=== PATIENT | female | born 1970 | race Caucasian/White ===

== ENCOUNTER 2016-07-12 09:58 | Emergency (ER) | payer MEDICAID ==
[~2016-07-12] VITALS: Ht 157.5 cm; Wt 75.7 kg
[~2016-07-12 09:58] MED LIST: ATEN50TA PO
[2016-07-12 10:07] VITALS: BP 156/95; PULSE 100; RESP 20; TEMP 97.7; O2SAT 100
--- NOTE | 2016-07-12 10:13 | NUR ---
Pt placed to ER bed 03 and to gown. Report given to LEONARD Cervantes.
--- NOTE | 2016-07-12 10:20 | NUR ---
C/O LLQ, suprapubic pain. Reports that she had diarrhea all night, denies vomiting, denies fever. States that she has had diarrhea for a few months and is being worked up by her PCP for the diarrhea. Abd is tender to LLQ and suprapubis.
--- NOTE | 2016-07-12 10:23 | NUR ---
ER Dr. Quiñonez at bedside examining patient.
[2016-07-12] MEDS ORDERED: KETOROLAC TROMETHAMINE 60 MG/2 ML VIAL IM ONE (10:30)
[2016-07-12 10:37] LABS: BILIRUBIN,URINE NEGATIVE (NEGATIVE); BLOOD, URINE NEGATIVE (NEGATIVE); CLARITY/URINE CLEAR (CLEAR); COLOR,URINE YELLOW (YELLOW); GLUCOSE,URINE NEGATIVE (NEGATIVE); KETONES,URINE NEGATIVE (NEGATIVE); LEUKOCYTE ESTERASE ,URINE NEGATIVE (NEGATIVE); NITRITE, URINE NEGATIVE (NEGATIVE); PH,URINE 6.5 (5.0-8.0); PROTEIN URINE NEGATIVE (NEGATIVE); UROBILINOGEN,URINE 0.2 (0.2-1.0)
[2016-07-12 10:48] LABS: BASOPHILS # (AUTO) 0.1 K/uL (0.0-0.2); EOSINOPHILS % (AUTO) 0.4 % (0.0-4.0); HEMATOCRIT 43.2 % (36-48); HEMOGLOBIN 14.3 g/dL (12.0-16.0); LYMPHOCYTES # (AUTO) 2.3 K/uL (1.0-5.5); MEAN CORPUSCULAR HEMOGLOBIN 29 pg (27-31); MEAN CORPUSCULAR HGB CONC 33 % (32-36); MEAN CORPUSCULAR VOLUME 87 fL (79.0-98.0); MONOCYTES # (AUTO) 0.4 K/uL (0.0-1.0); MONOCYTES % (AUTO) 3.7 % (1.7-9.3); NEUTROPHILS # (AUTO) 9.3 K/uL (1.8-7.7); NEUTROPHILS % (AUTO) 75.9 % (40.0-70.0); PLATELET COUNT (AUTO) 263 K/uL (130-430); RED BLOOD CELL COUNT(AUTO) 4.97 MIL/uL (4.2-6.2); RED CELL DISTRIBUTION WIDTH 12.3 % (9.0-15.0); WHITE BLOOD COUNT (AUTO) 12.1 K/uL (4.8-10.8)
[2016-07-12 10:54] LABS: CREATININE 0.66 mg/dL (0.55-1.30); POTASSIUM 3.8 mmol/L (3.5-5.1)
[2016-07-12 11:00] LABS: TOTAL BILIRUBIN 0.8 mg/dL (0.0-1.0)
[2016-07-12 11:01] LABS: ALBUMIN 3.9 g/dL (3.4-4.8); TOTAL PROTEIN, SERUM 8.4 g/dL (6.4-8.3)
--- NOTE | 2016-07-12 11:08 | NUR ---
States that pain is imporved to 4/10 which is tolerable, still awaiting CT.
[2016-07-12] MEDS ORDERED: FLUT16SP16 NS (11:11)
[2016-07-12] MEDS ORDERED: LISI40TA4 PO (11:11)
[2016-07-12] MEDS ORDERED: OMEP40CA33 PO (11:11)
[2016-07-12] MEDS ORDERED: LORA-258 PO (11:15)
[2016-07-12] MEDS ORDERED: CIPROFLOXACIN HCL 500 MG TABLET PO ONE (12:15)
[2016-07-12] MEDS ORDERED: metroNIDAZOLE 500 MG TABLET PO ONE (12:15)
--- NOTE | 2016-07-12 12:50 | NUR ---
Patient states that she is comfortable. Awaiting US.
--- NOTE | 2016-07-12 13:10 | NUR ---
Off unit for US.
--- NOTE | 2016-07-12 13:47 | NUR ---
Returned from US.
--- NOTE | 2016-07-12 14:05 | NUR ---
Patient does not wish to proceed with medical care recommended by Dr. Quiñonez. Patient given information related to possible complications, up to and including , which could occur as a result of leaving hospital at this time. Patient states that she is traumatized from past hospitalizations and is feeling anxiety related to admission. Patient verbalizes understanding of risks involved leaving against medical advice. Patient advised to return if she has worsening pain, vomiting, or develops fever. Patient advised to follow closely with PCP regardless of how she feels. Patient has signed AMA form.
[2016-07-12 14:08] VITALS: BP 155/92; PULSE 101; RESP 16; TEMP 97.9; O2SAT 99
== END 2016-07-12 14:08 | disposition left against medical advice (07) ==
LOC: SED 09:58
DX: K57.32 Diverticulitis of large intestine without perforation or abscess without bleeding (principal); I10 Essential (primary) hypertension; Z88.6 Allergy status to analgesic agent; Z88.5 Allergy status to narcotic agent
CPT/HCPCS: 36415; 74176; 76830; 76857; 80053; 81003; 81025; 82150; 83605; 83690; 85025; 87040; 96372; 99285; J1885

== ENCOUNTER 2017-07-17 12:02 | Emergency (ER) | payer MEDICAID ==
[~2017-07-17] VITALS: Ht 157.5 cm; Wt 83.9 kg
[~2017-07-17 12:02] MED LIST changes: +FLUT16SP16 NS; +LISI40TA4 PO; +LORA-258 PO; +OMEP40CA33 PO
[2017-07-17 12:38] VITALS: BP_SYST 159
--- NOTE | 2017-07-17 13:06 | NUR ---
Patient to ER bed 1 to gown for evaluation. Side rails up. Report given to Rosemary VALLE.
--- NOTE | 2017-07-17 13:12 | NUR ---
SYLVAIN SUTHERLAND AT BEDSIDE FOR EVALUATION
--- NOTE | 2017-07-17 13:20 | NUR ---
Patient given written and verbal discharge instructions and verbalizes understanding. ER MD discussed with patient the results and treatment provided. Patient in stable condition. ID arm band removed. Rx of MOTRIN,AUGMENTIN given. Patient educated on pain management and to follow up with PMD. Pain Scale 0/10. Opportunity for questions provided and answered. Medication side effect fact sheet provided.
== END 2017-07-17 13:20 | disposition home or self-care (01) ==
LOC: SED 12:02
DX: J01.00 Acute maxillary sinusitis, unspecified (principal); I10 Essential (primary) hypertension; M19.90 Unspecified osteoarthritis, unspecified site; E66.9 Obesity, unspecified; Z68.33 Body mass index [BMI] 33.0-33.9, adult; Z90.89 Acquired absence of other organs; Z90.49 Acquired absence of other specified parts of digestive tract; Z90.710 Acquired absence of both cervix and uterus; Z86.79 Personal history of other diseases of the circulatory system; Z88.5 Allergy status to narcotic agent; Z88.6 Allergy status to analgesic agent; Z79.899 Other long term (current) drug therapy
CPT/HCPCS: 99283

== ENCOUNTER 2017-08-24 14:31 | Emergency (ER) | payer MEDICAID ==
[~2017-08-24] VITALS: Ht 157.5 cm; Wt 83.9 kg
[2017-08-24 14:40] VITALS: BP_SYST 142
[2017-08-24 15:23] VITALS: BP_SYST 138
== END 2017-08-24 15:23 | disposition home or self-care (01) ==
LOC: SED 14:31
DX: H60.92 Unspecified otitis externa, left ear (principal); H66.92 Otitis media, unspecified, left ear; I10 Essential (primary) hypertension; K21.9 Gastro-esophageal reflux disease without esophagitis; F41.9 Anxiety disorder, unspecified; M19.90 Unspecified osteoarthritis, unspecified site; Z90.49 Acquired absence of other specified parts of digestive tract; Z90.89 Acquired absence of other organs; Z90.710 Acquired absence of both cervix and uterus; Z88.1 Allergy status to other antibiotic agents; Z88.6 Allergy status to analgesic agent; Z88.5 Allergy status to narcotic agent; Z79.899 Other long term (current) drug therapy
CPT/HCPCS: 99283

== ENCOUNTER 2018-04-06 09:35 | Emergency (ER) | payer MEDICAID ==
[~2018-04-06] VITALS: Ht 157.5 cm; Wt 86.2 kg
[2018-04-06 09:49] VITALS: BP_SYST 159
--- NOTE | 2018-04-06 09:49 | NUR ---
Patient to ER bed 7 to gown for evaluation. Side rails up.
--- NOTE | 2018-04-06 10:00 | NUR ---
PT PRESENTS TO ED C/O L GREAT TOE PAIN AND URINARY SYMPTOMS. pT HAS NO ACUTE DISTRESS NOTED.
--- NOTE | 2018-04-06 10:05 | NUR ---
ER at bedside examining patient.
--- NOTE | 2018-04-06 10:30 | NUR ---
Urine specimen collected and analyzed in ER. Results given to ER .
--- NOTE | 2018-04-06 10:40 | NUR ---
AT BEDSIDE FOR I&D OF PT'S TOE. PT TOLERATED WELL. WOUND CARE RECEIVED.
[2018-04-06] MEDS ORDERED: NORFLURANE/HFC 245FA 103.5 ML SPRAY TP ONE (10:45)
[2018-04-06 11:15] VITALS: BP_SYST 159
[2018-04-06] MEDS ORDERED: IBUPROFEN 800 MG TABLET PO ONE (11:15)
--- NOTE | 2018-04-06 11:20 | NUR ---
Patient given written and verbal discharge instructions and verbalizes understanding. ER MD discussed with patient the results and treatment provided. Patient in stable condition. ID arm band removed. Rx of MACROBID,MUPROCIN,CLINDAMYCIN given. Patient educated on pain management and to follow up with PMD. Pain Scale 2. Opportunity for questions provided and answered. Medication side effect fact sheet provided.
== END 2018-04-06 11:20 | disposition home or self-care (01) ==
LOC: SED 09:35
DX: L60.0 Ingrowing nail (principal); N39.0 Urinary tract infection, site not specified; K21.9 Gastro-esophageal reflux disease without esophagitis; F41.9 Anxiety disorder, unspecified; I10 Essential (primary) hypertension; Z86.79 Personal history of other diseases of the circulatory system; Z90.49 Acquired absence of other specified parts of digestive tract; Z90.89 Acquired absence of other organs; Z90.710 Acquired absence of both cervix and uterus; Z88.1 Allergy status to other antibiotic agents; Z88.6 Allergy status to analgesic agent
CPT/HCPCS: 99283

== ENCOUNTER 2018-07-08 09:06 | Emergency (ER) | payer MEDICAID ==
[~2018-07-08] VITALS: Ht 157.5 cm; Wt 87.1 kg
[2018-07-08 09:21] VITALS: BP_SYST 155
[2018-07-08] MEDS ORDERED: guaiFENesin/DEXTROMETHORPHAN 10 ML UDC PO ONE (09:45)
[2018-07-08] MEDS ORDERED: LevALBUTEROL HCL 1.25 MG/0.5 ML *CONC.* VIAL.NEB (XOPENEX CONC.) INH ONE (09:45)
[2018-07-08] MEDS ORDERED: cefTRIAXone 1 GM in LIDOCAINE 1%, 20 ML MDV 2.1 ML IM ONE (09:45)
[2018-07-08 10:35] VITALS: BP_SYST 152
== END 2018-07-08 10:35 | disposition home or self-care (01) ==
LOC: SED 09:06
DX: J02.9 Acute pharyngitis, unspecified (principal); B34.9 Viral infection, unspecified; K21.9 Gastro-esophageal reflux disease without esophagitis; I10 Essential (primary) hypertension; F41.9 Anxiety disorder, unspecified; Z86.79 Personal history of other diseases of the circulatory system; Z88.1 Allergy status to other antibiotic agents; Z88.6 Allergy status to analgesic agent; Z88.4 Allergy status to anesthetic agent
CPT/HCPCS: 94640; 96372; 99283; J0696; J2001; J7612

== ENCOUNTER 2018-07-10 11:17 | Emergency (ER) | payer MEDICAID ==
[~2018-07-10] VITALS: Ht 157.5 cm; Wt 87.1 kg
[2018-07-10] MEDS ORDERED: NACL 0.9% 1,000 ML IV ONE (11:25)
[2018-07-10 12:15] LABS: BASOPHILS % (AUTO) 0.7 % (0.0-2.0); EOSINOPHILS # (AUTO) 0.1 K/uL (0.0-0.4); EOSINOPHILS % (AUTO) 1.2 % (0.0-4.0); HEMOGLOBIN 13.5 g/dL (12.0-16.0); LYMPHOCYTES # (AUTO) 2.1 K/uL (1.0-5.5); LYMPHOCYTES % (AUTO) 40.2 % (20.5-51.5); MEAN CORPUSCULAR HEMOGLOBIN 28 pg (27-31); MEAN CORPUSCULAR HGB CONC 33 % (32-36); MEAN CORPUSCULAR VOLUME 85 fL (79.0-98.0); MONOCYTES # (AUTO) 0.3 K/uL (0.0-1.0); MONOCYTES % (AUTO) 6.6 % (1.7-9.3); NEUTROPHILS # (AUTO) 2.6 K/uL (1.8-7.7); NEUTROPHILS % (AUTO) 51.3 % (40.0-70.0); PLATELET COUNT (AUTO) 288 K/uL (130-430); RED BLOOD CELL COUNT(AUTO) 4.84 MIL/uL (4.2-6.2); RED CELL DISTRIBUTION WIDTH 12.7 % (9.0-15.0); WHITE BLOOD COUNT (AUTO) 5.1 K/uL (4.8-10.8)
[2018-07-10 12:20] LABS: CALCIUM 8.8 mg/dL (8.4-11.0); CREATININE 0.73 mg/dL (0.55-1.30); POTASSIUM 3.7 mmol/L (3.5-5.1)
[2018-07-10 12:25] LABS: ALBUMIN 3.2 g/dL (3.4-4.8); TOTAL BILIRUBIN 0.5 mg/dL (0.0-1.0)
[2018-07-10 12:30] VITALS: BP_SYST 159
[2018-07-10] MEDS ORDERED: KETOROLAC TROMETHAMINE 30 MG VIAL IM ONE (15:00)
[2018-07-10 15:33] VITALS: BP_SYST 159
== END 2018-07-10 14:30 | disposition home or self-care (01) ==
LOC: SED 11:17
DX: R59.0 Localized enlarged lymph nodes (principal); K21.9 Gastro-esophageal reflux disease without esophagitis; F41.9 Anxiety disorder, unspecified; I10 Essential (primary) hypertension; Z86.79 Personal history of other diseases of the circulatory system; Z88.1 Allergy status to other antibiotic agents; Z88.4 Allergy status to anesthetic agent; Z88.6 Allergy status to analgesic agent; Z79.899 Other long term (current) drug therapy
CPT/HCPCS: 36415; 80053; 85025; 96372; 99283; J1885

== ENCOUNTER 2018-10-31 10:03 | Emergency (ER) | payer MEDICAID ==
[~2018-10-31] VITALS: Ht 157.5 cm; Wt 86.2 kg
[2018-10-31 10:10] VITALS: BP_SYST 137
[2018-10-31 12:05] VITALS: BP_SYST 125
== END 2018-10-31 12:05 | disposition home or self-care (01) ==
LOC: SED 10:03
DX: M26.621 Arthralgia of right temporomandibular joint (principal); I10 Essential (primary) hypertension; F41.9 Anxiety disorder, unspecified; Z90.49 Acquired absence of other specified parts of digestive tract; Z90.89 Acquired absence of other organs; Z90.710 Acquired absence of both cervix and uterus; Z79.899 Other long term (current) drug therapy; Z88.1 Allergy status to other antibiotic agents; Z88.4 Allergy status to anesthetic agent; Z88.6 Allergy status to analgesic agent
CPT/HCPCS: 70450-TC; 99284

== ENCOUNTER 2019-03-07 10:38 | Emergency (ER) | payer MEDICAID ==
[~2019-03-07] VITALS: Ht 157.5 cm; Wt 88.5 kg
[2019-03-07 10:52] VITALS: BP_SYST 154
--- NOTE | 2019-03-07 11:00 | NUR ---
Patient to ER bed 7 to gown for evaluation. Side rails up. Report given to Annabel VALLE.
--- NOTE | 2019-03-07 11:02 | NUR ---
pt brought by self , A&Ox4, pt presents to ER with cough and congestion x 5 days, afebrile, skin pink and warm, cap refill <3,VSS.
--- NOTE | 2019-03-07 11:04 | NUR ---
Dr Rubio at bedside examining patient
--- NOTE | 2019-03-07 12:05 | NUR ---
Patient given written and verbal discharge instructions and verbalizes understanding. ER MD discussed with patient the results and treatment provided. Patient in stable condition. ID arm band removed. Rx of Milind Goyal given. Patient educated on pain management and to follow up with PMD. Pain Scale 0/10. Opportunity for questions provided and answered. Medication side effect fact sheet provided.
== END 2019-03-07 12:05 | disposition home or self-care (01) ==
LOC: SED 10:38
DX: J06.9 Acute upper respiratory infection, unspecified (principal); I10 Essential (primary) hypertension; F41.9 Anxiety disorder, unspecified; Z86.79 Personal history of other diseases of the circulatory system; Z88.6 Allergy status to analgesic agent; Z91.041 Radiographic dye allergy status; Z79.899 Other long term (current) drug therapy
CPT/HCPCS: 71045; 99283

== ENCOUNTER 2019-03-11 09:01 | Emergency (ER) | payer MEDICAID ==
[~2019-03-11] VITALS: Ht 157.5 cm; Wt 88.5 kg
[2019-03-11 09:01] VITALS: BP_SYST 149
[2019-03-11] MEDS ORDERED: PREDNISONE 20 MG TABLET PO ONE (09:30)
[2019-03-11 10:00] VITALS: BP_SYST 158
== END 2019-03-11 10:00 | disposition home or self-care (01) ==
LOC: SED 09:01
DX: J40 Bronchitis, not specified as acute or chronic (principal); I10 Essential (primary) hypertension; Z88.5 Allergy status to narcotic agent; Z88.6 Allergy status to analgesic agent; Z88.8 Allergy status to other drugs, medicaments and biological substances
CPT/HCPCS: 71046-TC; 93005; 99283; J7512

== ENCOUNTER 2019-12-27 02:26 | Emergency (ER) | payer MEDICAID ==
[~2019-12-27] VITALS: Ht 157.5 cm; Wt 88.9 kg
[2019-12-27 02:26] VITALS: BP_SYST 141
[2019-12-27] MEDS ORDERED: LORA10TA7 PO (03:25)
[2019-12-27] MEDS ORDERED: NACL 0.9% 1,000 ML IV ONE (03:45)
[2019-12-27] MEDS ORDERED: MECLIZINE HCL 25 MG TABLET (ANITVERT) PO ONE ×2 (03:45→06:45)
[2019-12-27 03:48] LABS: BASOPHILS # (AUTO) 0.1 K/uL (0.0-0.2); BASOPHILS % (AUTO) 1.1 % (0.0-2.0); EOSINOPHILS # (AUTO) 0.1 K/uL (0.0-0.4); EOSINOPHILS % (AUTO) 1.4 % (0.0-4.0); HEMATOCRIT 41.6 % (36-48); HEMOGLOBIN 13.9 g/dL (12.0-16.0); LYMPHOCYTES # (AUTO) 2.5 K/uL (1.0-5.5); LYMPHOCYTES % (AUTO) 33.9 % (20.5-51.5); MEAN CORPUSCULAR HEMOGLOBIN 28 pg (27-31); MEAN CORPUSCULAR HGB CONC 33 % (32-36); MEAN CORPUSCULAR VOLUME 83 fL (79.0-98.0); MONOCYTES # (AUTO) 0.3 K/uL (0.0-1.0); MONOCYTES % (AUTO) 4.7 % (1.7-9.3); NEUTROPHILS # (AUTO) 4.3 K/uL (1.8-7.7); NEUTROPHILS % (AUTO) 58.9 % (40.0-70.0); PLATELET COUNT (AUTO) 250 K/uL (130-430); RED BLOOD CELL COUNT(AUTO) 5.03 MIL/uL (4.2-6.2); RED CELL DISTRIBUTION WIDTH 14.4 % (9.0-15.0); WHITE BLOOD COUNT (AUTO) 7.3 K/uL (4.8-10.8)
[2019-12-27 04:02] LABS: CALCIUM 9.1 mg/dL (8.4-11.0); CREATININE 0.74 mg/dL (0.55-1.30); POTASSIUM 3.4 mmol/L (3.5-5.1)
[2019-12-27 04:09] LABS: ALBUMIN 3.5 g/dL (3.4-4.8); TOTAL BILIRUBIN 0.5 mg/dL (0.0-1.0)
[2019-12-27] MEDS ORDERED: LORazepam 2 MG/ML VIAL IM ONE (04:15)
[2019-12-27] MEDS ORDERED: LORazepam 2 MG/ML VIAL IVP ONE (07:45)
[2019-12-27 08:53] VITALS: BP_SYST 145
== END 2019-12-27 08:54 | disposition home or self-care (01) ==
LOC: SED 02:26
DX: R42 Dizziness and giddiness (principal); I10 Essential (primary) hypertension; F41.9 Anxiety disorder, unspecified; Z86.73 Personal history of transient ischemic attack (TIA), and cerebral infarction without residual deficits; Z79.899 Other long term (current) drug therapy; Z88.6 Allergy status to analgesic agent
CPT/HCPCS: 36415; 70450; 80053; 81002; 85025; 93005; 96361; 96372; 96374; 99285; J2060; J8597

== ENCOUNTER 2020-03-13 09:12 | Emergency (ER) | payer MEDICAID ==
[~2020-03-13] VITALS: Ht 157.5 cm; Wt 87.5 kg
[~2020-03-13 09:12] MED LIST changes: +LORA10TA7 PO; +OMEP40CA13 PO; -OMEP40CA33 PO
[2020-03-13 09:16] VITALS: BP_SYST 156
--- NOTE | 2020-03-13 09:16 | NUR ---
Patient to ER bed 3 to gown for evaluation. Side rails up. Report given to Zaria VALLE.
--- NOTE | 2020-03-13 09:18 | NUR ---
Patient presented to ER C/O Abdominal pain. Patient A&Ox4, ambulatory, afebrile, skin pink & warm, pain /, denies N/V/D. Patient states she has left lower abdominal pain radiating to back. Patients reports hx of diverticulitis.
--- NOTE | 2020-03-13 09:29 | NUR ---
ER at bedside examining patient.
[2020-03-13] MEDS ORDERED: KETOROLAC TROMETHAMINE 60 MG/2 ML VIAL IM ONE (09:30)
[2020-03-13 10:19] LABS: CORRECTED WHITE BLOOD COUNT 9.8 K/uL (4.5-11.0); HEMATOCRIT 38.5 % (36-48); MEAN CORPUSCULAR HEMOGLOBIN 28 pg (27-31); MEAN CORPUSCULAR VOLUME 84 fL (79.0-98.0); WHITE BLOOD COUNT (AUTO) 9.8 K/uL (4.8-10.8)
[2020-03-13 10:20] LABS: EOSINOPHILS % (AUTO) 1.1 % (0.0-4.0); LYMPHOCYTES % (AUTO) 21.5 % (20.5-51.5); MEAN CORPUSCULAR HGB CONC 34 % (32-36); MONOCYTES % (AUTO) 4.4 % (1.7-9.3); NEUTROPHILS % (AUTO) 72.2 % (40.0-70.0); PLATELET COUNT (AUTO) 261 K/uL (130-430); RED CELL DISTRIBUTION WIDTH 14.3 % (9.0-15.0)
--- NOTE | 2020-03-13 10:20 | NUR ---
Patient refused Toradol IM. Patient educated on Medication. Made Dr. Rodrigues aware.
[2020-03-13 10:21] LABS: BASOPHILS # (AUTO) 0.1 K/uL (0.0-0.2); BASOPHILS % (AUTO) 0.8 % (0.0-2.0); EOSINOPHILS # (AUTO) 0.1 K/uL (0.0-0.4); LYMPHOCYTES # (AUTO) 2.1 K/uL (1.0-5.5); MONOCYTES # (AUTO) 0.4 K/uL (0.0-1.0); NEUTROPHILS # (AUTO) 7.1 K/uL (1.8-7.7)
[2020-03-13 10:27] LABS: POTASSIUM 3.5 mmol/L (3.5-5.1)
[2020-03-13 10:28] LABS: CALCIUM 8.6 mg/dL (8.4-11.0); CREATININE 0.61 mg/dL (0.55-1.30); TOTAL BILIRUBIN 0.8 mg/dL (0.0-1.0)
[2020-03-13 10:29] LABS: ALBUMIN 3.5 g/dL (3.4-4.8)
[2020-03-13 12:04] VITALS: BP_SYST 148
--- NOTE | 2020-03-13 12:04 | NUR ---
Patient given written and verbal discharge instructions and verbalizes understanding. ER MD discussed with patient the results and treatment provided. Patient in stable condition. ID arm band removed. Rx of cipro,flagyl,motrin given. Patient educated on pain management and to follow up with PMD. Pain Scale 0/10. Opportunity for questions provided and answered. Medication side effect fact sheet provided.
== END 2020-03-13 12:04 | disposition home or self-care (01) ==
LOC: SED 09:12
DX: K57.92 Diverticulitis of intestine, part unspecified, without perforation or abscess without bleeding (principal); I10 Essential (primary) hypertension; F41.9 Anxiety disorder, unspecified; Z86.73 Personal history of transient ischemic attack (TIA), and cerebral infarction without residual deficits; Z79.899 Other long term (current) drug therapy; Z88.6 Allergy status to analgesic agent; Z88.4 Allergy status to anesthetic agent
CPT/HCPCS: 36415; 74176; 80053; 81002; 85025; 99284; J1885

== ENCOUNTER 2020-12-28 11:19 | Emergency (ER) | payer MEDICAID ==
[~2020-12-28] VITALS: Ht 157.5 cm; Wt 86.2 kg
[~2020-12-28 11:19] MED LIST changes: +LISI40TA13 PO; -LISI40TA4 PO
--- NOTE | 2020-12-28 11:20 | NUR ---
Pt triaged and placed in waiting room. V/S stable, no acute distress noted.
--- NOTE | 2020-12-28 11:25 | NUR ---
Pt walked in to ER with c/o right knee pain, s/p mechanical fall. Denies any LOC or other trauma a this time. Pain 6/10, v/s stable, no acute distress noted.
--- NOTE | 2020-12-28 11:30 | NUR ---
ER Dr. Griffin at bedside examining patient.
--- NOTE | 2020-12-28 11:40 | NUR ---
Patient transported to radiology via wheelchair, accompanied by staff.
[2020-12-28 11:54] VITALS: BP_SYST 156
[2020-12-28 14:10] VITALS: BP_SYST 148
--- NOTE | 2020-12-28 14:11 | NUR ---
Patient given written and verbal discharge instructions and verbalizes understanding. ER MD discussed with patient the results and treatment provided. Patient in stable condition. ID arm band removed. No prescriptions given. Patient educated on pain management and to follow up with PMD. Pain Scale 0. Opportunity for questions provided and answered. Medication side effect fact sheet provided.
== END 2020-12-28 14:11 | disposition home or self-care (01) ==
LOC: SED 11:19
DX: S83.91XA Sprain of unspecified site of right knee, initial encounter (principal); I10 Essential (primary) hypertension; Z88.5 Allergy status to narcotic agent; Z88.8 Allergy status to other drugs, medicaments and biological substances; Z79.899 Other long term (current) drug therapy; W01.0XXA Fall on same level from slipping, tripping and stumbling without subsequent striking against object, initial encounter; Y93.89 Activity, other specified; Y92.89 Other specified places as the place of occurrence of the external cause; Y99.8 Other external cause status
CPT/HCPCS: 73564; 99283

== ENCOUNTER 2021-03-27 10:43 | Emergency (ER) | payer MEDICAID ==
[~2021-03-27] VITALS: Ht 157.5 cm; Wt 88.0 kg
[~2021-03-27 10:43] MED LIST changes: -OMEP40CA13 PO; +OMEP40CA20 PO
[2021-03-27 10:45] VITALS: BP_SYST 150
--- NOTE | 2021-03-27 10:50 | NUR ---
Patient triaged and placed in waiting room. VSS and patient appears in no acute distress at this time. Accompanied by SELF, awaiting available bed, and MD notified of need for MSE.
--- NOTE | 2021-03-27 11:00 | NUR ---
Pt walked in to ER with left ankle pain 6/10 s/p mechanical slip and fall down one of her stairs today. Denies any other trauma at this time, no deformity noted. V/S stable, no acute distress noted.
--- NOTE | 2021-03-27 11:25 | NUR ---
ER Dr. Cox at bedside examining patient.
--- NOTE | 2021-03-27 11:40 | NUR ---
Patient transported to radiology via wheelchair, accompanied by staff.
[2021-03-27] MEDS ORDERED: IBUP-1969 PO ×2 (12:14→13:03)
[2021-03-27] MEDS ORDERED: HYDR-3917 PO (12:14)
--- NOTE | 2021-03-27 12:55 | NUR ---
Patient given written and verbal discharge instructions and verbalizes understanding. ER MD discussed with patient the results and treatment provided. Patient in stable condition. ID arm band removed. Rx of Motrin given. Patient educated on pain management and to follow up with PMD. Pain Scale 0. Opportunity for questions provided and answered. Medication side effect fact sheet provided.
[2021-03-27 13:06] VITALS: BP_SYST 150
== END 2021-03-27 12:55 | disposition home or self-care (01) ==
LOC: SED 10:43
DX: S93.402A Sprain of unspecified ligament of left ankle, initial encounter (principal); S93.602A Unspecified sprain of left foot, initial encounter; I10 Essential (primary) hypertension; Z88.5 Allergy status to narcotic agent; Z88.8 Allergy status to other drugs, medicaments and biological substances; Z79.899 Other long term (current) drug therapy; X50.1XXA Overexertion from prolonged static or awkward postures, initial encounter; Y93.89 Activity, other specified; Y92.89 Other specified places as the place of occurrence of the external cause; Y99.8 Other external cause status
CPT/HCPCS: 99284

== ENCOUNTER 2022-02-01 12:02 | Emergency (ER) | payer MEDICAID ==
[~2022-02-01] VITALS: Ht 162.6 cm; Wt 81.6 kg
[~2022-02-01 12:02] MED LIST changes: +IBUP-1969 PO
[2022-02-01 12:05] VITALS: BP_SYST 137
--- NOTE | 2022-02-01 12:05 | NUR ---
BROUGHT INTO TRIAGE TENT AND TRIAGED. AWAITING ER BED AVAILABILITY
--- NOTE | 2022-02-01 12:25 | NUR ---
PT STATES THAT COLD SYMPTOMS WENT AROUND HER FAMILY AND NOW SHE'S BEEN SICK FOR 1 1/2 WEEKS. CONGESTION, SORE THROAT AND POST NASAL DRIP. STATES SLIGHT COUGH, SPEAKING FULL SENTENCES, NO DISTRESS.
[2022-02-01] MEDS ORDERED: KETOROLAC TROMETHAMINE 60 MG/2 ML VIAL IM ONE (14:00)
[2022-02-01] MEDS ORDERED: HYDROcodone/ACETAMIN 10-325 MG TAB PO ONE (14:00)
--- NOTE | 2022-02-01 14:04 | NUR ---
DR ZHENG OUT TO TRIAGE TENT TO EVALUATE
--- NOTE | 2022-02-01 15:47 | NUR ---
DR ZHENG OUT TO TRIAGE TENT TO RE-EVALUATE PT
[2022-02-01] MEDS ORDERED: AMOX250C PO (15:50)
[2022-02-01] MEDS ORDERED: IBUP-1969 PO (15:50)
--- NOTE | 2022-02-01 15:59 | NUR ---
PHONE NUMBER [phone]
[2022-02-01 16:18] VITALS: BP_SYST 133
--- NOTE | 2022-02-01 16:19 | NUR ---
Patient given written and verbal discharge instructions and verbalizes understanding. ARMANDO ZHENG MD discussed with patient the results and treatment provided. Patient in stable condition. ID arm band removed. IV catheter removed intact and dressing applied, no active bleeding. Rx of given. Patient educated on pain management and to follow up with PMD. Pain Scale 0. Opportunity for questions provided and answered. Medication side effect fact sheet provided.
== END 2022-02-01 16:19 | disposition home or self-care (01) ==
LOC: SED 12:02
DX: U07.1 COVID-19 (principal); J02.9 Acute pharyngitis, unspecified; R05.9 Cough, unspecified; I10 Essential (primary) hypertension; Z88.6 Allergy status to analgesic agent; Z88.4 Allergy status to anesthetic agent; Z79.899 Other long term (current) drug therapy
CPT/HCPCS: 36415; 71045; 93005; 99285

== ENCOUNTER 2023-01-11 11:58 | Emergency (ER) | payer MEDICAID ==
[~2023-01-11] VITALS: Ht 162.6 cm; Wt 63.5 kg
[~2023-01-11 11:58] MED LIST changes: +AMOX250C PO
[2023-01-11 12:11] VITALS: BP_SYST 137; PULSE 85; RESP 18; TEMP 98.3; O2SAT 98
[2023-01-11] MEDS ORDERED: IBUPROFEN 800 MG TABLET PO ONE (12:45)
[2023-01-11] MEDS ORDERED: IBUP-1969 PO (13:35)
[2023-01-11] MEDS ORDERED: CORTEARS LEFT EAR (13:35)
[2023-01-11] MEDS ORDERED: AMOX500C2 PO (13:53)
[2023-01-11 14:22] LABS: BASOPHILS # (AUTO) 0.1 K/uL (0.0-0.2); BASOPHILS % (AUTO) 1.1 % (0.0-2.0); EOSINOPHILS # (AUTO) 0.1 K/uL (0.0-0.4); EOSINOPHILS % (AUTO) 0.9 % (0.0-4.0); HEMOGLOBIN 12.7 g/dL (12.0-16.0); LYMPHOCYTES # (AUTO) 2.5 K/uL (1.0-5.5); LYMPHOCYTES % (AUTO) 31.9 % (20.5-51.5); MEAN CORPUSCULAR HEMOGLOBIN 26 pg (27-31); MEAN CORPUSCULAR HGB CONC 33 % (32-36); MEAN CORPUSCULAR VOLUME 80 fL (79.0-98.0); MONOCYTES # (AUTO) 0.3 K/uL (0.0-1.0); MONOCYTES % (AUTO) 4.2 % (1.7-9.3); NEUTROPHILS # (AUTO) 4.8 K/uL (1.8-7.7); NEUTROPHILS % (AUTO) 61.9 % (40.0-70.0); PLATELET COUNT (AUTO) 246 K/uL (130-430); RED BLOOD CELL COUNT(AUTO) 4.87 MIL/uL (4.2-6.2); RED CELL DISTRIBUTION WIDTH 14.9 % (9.0-15.0); WHITE BLOOD COUNT (AUTO) 7.8 K/uL (4.8-10.8)
[2023-01-11 14:33] LABS: CALCIUM 8.3 mg/dL (8.4-11.0); CREATININE 0.58 mg/dL (0.55-1.30); POTASSIUM 3.7 mmol/L (3.5-5.1)
[2023-01-11 14:48] LABS: ALBUMIN 3.3 g/dL (3.4-4.8); TOTAL BILIRUBIN 0.4 mg/dL (0.0-1.0); TOTAL PROTEIN, SERUM 7.2 g/dL (6.4-8.3)
[2023-01-11 14:53] VITALS: BP_SYST 135; PULSE 81; RESP 16; TEMP 98.2; O2SAT 98
== END 2023-01-11 14:50 | disposition home or self-care (01) ==
LOC: SED 11:58
DX: H60.92 Unspecified otitis externa, left ear (principal); R68.84 Jaw pain; M54.2 Cervicalgia; I10 Essential (primary) hypertension; Z88.4 Allergy status to anesthetic agent; Z88.5 Allergy status to narcotic agent; Z88.6 Allergy status to analgesic agent; Z79.899 Other long term (current) drug therapy
CPT/HCPCS: 36415; 80053; 83605; 85025; 99283

== ENCOUNTER 2023-01-14 12:41 | Emergency (ER) | payer MEDICAID ==
[~2023-01-14] VITALS: Ht 167.6 cm; Wt 79.4 kg
[~2023-01-14 12:41] MED LIST changes: +AMOX500C2 PO; +CORTEARS LEFT EAR
[2023-01-14 13:03] VITALS: BP_SYST 157; PULSE 96; RESP 18; TEMP 98.1; O2SAT 98
[2023-01-14] MEDS ORDERED: OXYC-128 PO (14:17)
[2023-01-14] MEDS ORDERED: AUG875 PO (14:17)
[2023-01-14] MEDS ORDERED: NEOM10SO7 EACH EAR (14:19)
[2023-01-14] MEDS ORDERED: OXYIR5 PO (15:12)
[2023-01-14] MEDS ORDERED: CIPR7.5D OT (15:12)
[2023-01-14 15:25] VITALS: BP_SYST 143; PULSE 95; RESP 19; TEMP 98.3; O2SAT 97
== END 2023-01-14 15:23 | disposition home or self-care (01) ==
LOC: SED 12:41
DX: H60.92 Unspecified otitis externa, left ear (principal); R51.9 Headache, unspecified; M54.2 Cervicalgia; E11.9 Type 2 diabetes mellitus without complications; I10 Essential (primary) hypertension; Z88.4 Allergy status to anesthetic agent; Z88.5 Allergy status to narcotic agent; Z88.6 Allergy status to analgesic agent; Z79.899 Other long term (current) drug therapy
CPT/HCPCS: 70450-TC; 76376; 99284

== ENCOUNTER 2023-01-18 09:36 | Emergency (ER) | payer MEDICAID ==
[~2023-01-18] VITALS: Ht 157.5 cm; Wt 95.3 kg
[~2023-01-18 09:36] MED LIST changes: +AUG875 PO; +CIPR7.5D OT; +OXYC-128 PO; +OXYIR5 PO
[2023-01-18 09:56] VITALS: BP_SYST 126; PULSE 101; RESP 18; TEMP 98.3; O2SAT 95
[2023-01-18 11:54] LABS: BASOPHILS # (AUTO) 0.1 K/uL (0.0-0.2); BASOPHILS % (AUTO) 1.1 % (0.0-2.0); EOSINOPHILS # (AUTO) 0.1 K/uL (0.0-0.4); EOSINOPHILS % (AUTO) 1.1 % (0.0-4.0); HEMATOCRIT 38.3 % (36-48); HEMOGLOBIN 12.7 g/dL (12.0-16.0); LYMPHOCYTES # (AUTO) 2.6 K/uL (1.0-5.5); LYMPHOCYTES % (AUTO) 30.2 % (20.5-51.5); MEAN CORPUSCULAR HEMOGLOBIN 27 pg (27-31); MEAN CORPUSCULAR HGB CONC 33 % (32-36); MEAN CORPUSCULAR VOLUME 81 fL (79.0-98.0); MONOCYTES # (AUTO) 0.2 K/uL (0.0-1.0); MONOCYTES % (AUTO) 2.9 % (1.7-9.3); NEUTROPHILS # (AUTO) 5.5 K/uL (1.8-7.7); NEUTROPHILS % (AUTO) 64.7 % (40.0-70.0); PLATELET COUNT (AUTO) 248 K/uL (130-430); RED BLOOD CELL COUNT(AUTO) 4.73 MIL/uL (4.2-6.2); RED CELL DISTRIBUTION WIDTH 14.8 % (9.0-15.0); WHITE BLOOD COUNT (AUTO) 8.6 K/uL (4.8-10.8)
[2023-01-18 12:12] LABS: CALCIUM 8.5 mg/dL (8.4-11.0); CREATININE 0.62 mg/dL (0.55-1.30); POTASSIUM 3.8 mmol/L (3.5-5.1)
[2023-01-18 12:17] LABS: ALBUMIN 3.3 g/dL (3.4-4.8); TOTAL BILIRUBIN 0.5 mg/dL (0.0-1.0); TOTAL PROTEIN, SERUM 7.3 g/dL (6.4-8.3)
[2023-01-18] MEDS ORDERED: NAPR-431 PO (12:32)
[2023-01-18 12:48] VITALS: BP_SYST 121; PULSE 86; RESP 18; TEMP 98.3; O2SAT 95
== END 2023-01-18 12:48 | disposition home or self-care (01) ==
LOC: SED 09:36
DX: S09.11XA Strain of muscle and tendon of head, initial encounter (principal); S03.42XA Sprain of jaw, left side, initial encounter; E11.9 Type 2 diabetes mellitus without complications; I10 Essential (primary) hypertension; Z88.4 Allergy status to anesthetic agent; Z88.5 Allergy status to narcotic agent; Z88.6 Allergy status to analgesic agent; Z79.899 Other long term (current) drug therapy; X58.XXXA Exposure to other specified factors, initial encounter; Y93.89 Activity, other specified; Y92.89 Other specified places as the place of occurrence of the external cause; Y99.8 Other external cause status
CPT/HCPCS: 36415; 70486-TC; 76376; 80053; 85025; 99284

== ENCOUNTER 2023-07-06 11:52 | Emergency (ER) | payer MEDICAID ==
[~2023-07-06 11:52] MED LIST changes: +NAPR-431 PO
== END 2023-07-06 12:00 | disposition left against medical advice (07) ==
LOC: SED 11:52
DX: H47.019 Ischemic optic neuropathy, unspecified eye (principal); Z53.21 Procedure and treatment not carried out due to patient leaving prior to being seen by health care provider